=== PATIENT | male | born 1980 | race Caucasian/White ===

== ENCOUNTER 2016-09-29 19:42 | Emergency (ER) | payer OTHER ==
[~2016-09-29] VITALS: Ht 177.8 cm; Wt 79.4 kg
[~2016-09-29 19:42] MED LIST: ACYCLOVIR800 MG PO; ANAPROX DS550 MG PO; ANTIBIOTIC O500 U/GM TP; AUGMENTIN 875 M1 TAB PO; BACTRIM DS 8001 TA1 PO; KEFLEX500 MG PO; MOTRIN800 MG PO; NKHM; SUBOXONE 2 MG-01 TAB SL; ZANTAC 150150 MG PO
[2016-09-29] MEDS ORDERED: ANAPROX DS550 MG PO (21:04)
[2016-09-29] MEDS ORDERED: PREDNISONE20 M1 PO (21:16)
== END 2016-09-29 21:32 | disposition home or self-care (01) ==
LOC: ED 19:42
DX: G56.01 Carpal tunnel syndrome, right upper limb (principal); F17.200 Nicotine dependence, unspecified, uncomplicated

== ENCOUNTER 2017-05-04 20:11 | Emergency (ER) | payer BC ==
[~2017-05-04] VITALS: Ht 177.8 cm; Wt 81.6 kg
[~2017-05-04 20:11] MED LIST changes: +PREDNISONE20 M1 PO
[2017-05-04] MEDS ORDERED: CLINDAMYCIN150 MG PO (21:12)
== END 2017-05-04 21:20 | disposition home or self-care (01) ==
LOC: ED 20:11
DX: S60.453A Superficial foreign body of left middle finger, initial encounter (principal); F17.200 Nicotine dependence, unspecified, uncomplicated; Z79.899 Other long term (current) drug therapy; W22.8XXA Striking against or struck by other objects, initial encounter; Y93.89 Activity, other specified; Y92.89 Other specified places as the place of occurrence of the external cause; Y99.9 Unspecified external cause status

== ENCOUNTER 2019-11-27 14:08 | Emergency (ER) | payer SELFPAY ==
[~2019-11-27] VITALS: Ht 180.3 cm; Wt 81.6 kg
[~2019-11-27 14:08] MED LIST changes: +CLINDAMYCIN150 MG PO
== END 2019-11-27 16:52 | disposition home or self-care (01) ==
LOC: ED 14:08
DX: S63.253A Unspecified dislocation of left middle finger, initial encounter (principal); W18.39XA Other fall on same level, initial encounter; Y93.51 Activity, roller skating (inline) and skateboarding; Y92.89 Other specified places as the place of occurrence of the external cause; Y99.8 Other external cause status

== ENCOUNTER 2019-12-12 16:04 | Emergency (ER) | payer SELFPAY ==
[~2019-12-12] VITALS: Ht 170.1 cm; Wt 68.0 kg
[2019-12-12 16:20] LABS: BASO % 0.4 % (0.0-1.0); EOS # 0.1 10*3/uL (0.0-0.4); HEMATOCRIT 44.4 % (42.0-52.0); LYMPH # 2.5 10*3/uL (1.3-4.4); LYMPH % 25.2 % (27.0-41.0); MEAN CELL VOLUME 87.1 fl (80.0-94.0); MEAN CORPUSCULAR HGB 28.4 pg (27.0-31.0); MEAN CORPUSCULAR HGB CONC 32.7 g/dl (33.0-37.0); MEAN PLATELET VOLUME 9.2 fl (9.6-12.3); MONO # 0.8 10*3/uL (0.1-1.0); MONO % 7.6 % (3.0-9.0); NEUT # 6.6 10*3/uL (2.3-7.9); NEUT % 65.6 % (47.0-73.0); PLATELET COUNT AUTOMATED 315 10*3/uL (130-400); RED CELL DISTRI WIDTH 11.7 % (0-14.5)
[2019-12-12 16:37] LABS: ALBUMIN 3.8 gm/dl (3.1-4.5); ALKALINE PHOSPHATASE 130 U/L (45-117); BUN 9 mg/dl (7-24); CHLORIDE 105 mmol/L (98-107); POTASSIUM 3.8 mmol/L (3.5-5.1); SGOT/AST 13 IU/L (3-35); SGPT/ALT 26 U/L (12-78); SODIUM 140 mmol/L (136-145); TOTAL PROTEIN 7.9 gm/dL (6.4-8.2)
== END 2019-12-12 18:27 | disposition home or self-care (01) ==
LOC: ED 16:04
PROVIDERS: Emergency Medicine
DX: T40.1X1A Poisoning by heroin, accidental (unintentional), initial encounter (principal); Y92.89 Other specified places as the place of occurrence of the external cause

== ENCOUNTER 2021-04-11 17:31 | Emergency (ER) | payer MEDICAID ==
[~2021-04-11] VITALS: Ht 180.3 cm; Wt 79.4 kg
== END 2021-04-11 18:12 | disposition home or self-care (01) ==
LOC: ED 17:31
DX: T40.1X1A Poisoning by heroin, accidental (unintentional), initial encounter (principal); F17.200 Nicotine dependence, unspecified, uncomplicated; Y92.89 Other specified places as the place of occurrence of the external cause

== ENCOUNTER 2022-08-04 06:38 | Emergency (ER) | payer MEDICAID ==
[~2022-08-04] VITALS: Ht 180.3 cm; Wt 77.1 kg
== END 2022-08-04 07:35 | disposition home or self-care (01) ==
LOC: ED 06:38
DX: B34.9 Viral infection, unspecified (principal); Z20.822 Contact with and (suspected) exposure to COVID-19

== ENCOUNTER 2022-10-05 15:25 | Emergency (ER) | payer OTHER | END 2022-10-05 16:18 | disposition left against medical advice (07) | LOC: ED 15:25 | DX: M54.50 Low back pain, unspecified (principal); Z53.21 Procedure and treatment not carried out due to patient leaving prior to being seen by health care provider ==

== ENCOUNTER 2023-05-05 16:35 | Emergency (ER) | payer SELFPAY | END 2023-05-05 17:01 | disposition left against medical advice (07) | LOC: ED 16:35 | DX: T50.991A Poisoning by other drugs, medicaments and biological substances, accidental (unintentional), initial encounter (principal); F19.10 Other psychoactive substance abuse, uncomplicated; Z53.29 Procedure and treatment not carried out because of patient's decision for other reasons; Y92.009 Unspecified place in unspecified non-institutional (private) residence as the place of occurrence of the external cause ==

== ENCOUNTER 2023-07-07 13:45 | Emergency (ER) | payer SELFPAY ==
[~2023-07-07] VITALS: Ht 177.8 cm; Wt 77.1 kg
[2023-07-08] MEDS ORDERED: IBUPROFEN600 MG PO (15:05)
[2023-07-08] MEDS ORDERED: VIBRAMYCIN100 MG PO (15:05)
== END 2023-07-07 16:50 | disposition left against medical advice (07) ==
LOC: ED 13:45
DX: S69.91XA Unspecified injury of right wrist, hand and finger(s), initial encounter (principal); Z79.2 Long term (current) use of antibiotics; Z53.29 Procedure and treatment not carried out because of patient's decision for other reasons; W22.8XXA Striking against or struck by other objects, initial encounter; Y93.89 Activity, other specified; Y92.89 Other specified places as the place of occurrence of the external cause; Y99.8 Other external cause status

== ENCOUNTER 2023-07-08 11:33 | Emergency (ER) | payer SELFPAY ==
[~2023-07-08] VITALS: Ht 177.8 cm; Wt 77.1 kg
[2023-07-08] MEDS ORDERED: IBUPROFEN 800 MG TAB PO ONE (13:25)
[2023-07-08] MEDS ORDERED: Doxycycline Hyclate 100 MG CAP PO ONE (13:25)
[2023-07-08] MEDS ORDERED: IBUPROFEN600 MG PO (15:05)
[2023-07-08] MEDS ORDERED: VIBRAMYCIN100 MG PO (15:05)
== END 2023-07-08 15:10 | disposition home or self-care (01) ==
LOC: ED 11:33
DX: L08.9 Local infection of the skin and subcutaneous tissue, unspecified (principal); F17.200 Nicotine dependence, unspecified, uncomplicated; Z79.2 Long term (current) use of antibiotics

== ENCOUNTER 2023-07-24 20:54 | Emergency (ER) | payer SELFPAY ==
[~2023-07-24] VITALS: Wt 77.1 kg
[~2023-07-24 20:54] MED LIST changes: +IBUPROFEN600 MG PO; +VIBRAMYCIN100 MG PO
[2023-07-24] MEDS ORDERED: Ketorolac Tromethamine 60 MG/2 ML VIAL IM ONE (21:25)
[2023-07-24] MEDS ORDERED: NAPROXEN250 MG PO (21:30)
== END 2023-07-24 21:32 | disposition home or self-care (01) ==
LOC: ED 20:54
DX: S63.502A Unspecified sprain of left wrist, initial encounter (principal); W01.198A Fall on same level from slipping, tripping and stumbling with subsequent striking against other object, initial encounter; Y93.89 Activity, other specified; Y92.89 Other specified places as the place of occurrence of the external cause; Y99.8 Other external cause status

== ENCOUNTER 2023-09-15 13:14 | Emergency (ER) | payer SELFPAY ==
[~2023-09-15] VITALS: Ht 177.8 cm; Wt 74.8 kg
[~2023-09-15 13:14] MED LIST changes: +NAPROXEN250 MG PO
[2023-09-15 15:34] LABS: BILIRUBIN Negative (Negative); BLOOD Negative (Negative); CLARITY Clear (Clear); COLOR Yellow (Yellow); GLUCOSE Negative (Negative); KETONE Negative (Negative); LEUKO ESTERASE Negative (Negative); NITRITE Negative (Negative); UROBILINOGEN 0.2 E.U./dl (0.0-1.0)
[2023-09-15 15:41] LABS: URINE AMPHETAMINES Positive (1000ng/ml); URINE BARBITURATES Negative (200ng/ml); URINE BENZODIAZEPINES Negative (200ng/ml); URINE CANNABINOIDS (THC) Positive (50ng/ml); URINE COCAINE Negative (300ng/ml); URINE METHADONE Negative (300ng/ml); URINE OPIATES Negative (300ng/ml); URINE PHENCYCLIDINE Negative (25ng/ml)
[2023-09-15 15:41] LABS: BASO # 0.1 10*3/uL (0.0-0.1); BASO % 0.8 % (0.0-1.0); EOS # 0.1 10*3/uL (0.0-0.4); EOS % 2.1 % (1.0-4.0); HEMATOCRIT 39.3 % (42.0-52.0); LYMPH # 1.6 10*3/uL (1.3-4.4); LYMPH % 25.3 % (27.0-41.0); MEAN CELL VOLUME 89.7 fl (80.0-94.0); MEAN CORPUSCULAR HGB 28.8 pg (27.0-31.0); MEAN CORPUSCULAR HGB CONC 32.1 g/dl (33.0-37.0); MEAN PLATELET VOLUME 8.7 fl (9.6-12.3); MONO # 0.9 10*3/uL (0.1-1.0); MONO % 14.1 % (3.0-9.0); NEUT # 3.6 10*3/uL (2.3-7.9); NEUT % 57.4 % (47.0-73.0); PLATELET COUNT AUTOMATED 217 10*3/uL (130-400); RED BLOOD COUNT 4.38 10*6/uL (4.50-5.90); RED CELL DISTRI WIDTH 12.3 % (0-14.5); WHITE BLOOD COUNT 6.3 10*3/uL (4.8-10.8)
[2023-09-15 15:51] LABS: EPITHELIAL CELLS 0-2; WBC 0-2 wbc/hpf (0-5)
[2023-09-15 16:13] LABS: BUN 14 mg/dl (9-23); CHLORIDE 102 mmol/L (98-107); ETHYL ALCOHOL 4.4 mg/dl (<3); POTASSIUM 4.4 mmol/L (3.4-5.1)
== END 2023-09-15 16:35 | disposition home or self-care (01) ==
LOC: ED 13:14
PROVIDERS: Physician Assistant Medical
DX: F19.10 Other psychoactive substance abuse, uncomplicated (principal); Z79.899 Other long term (current) drug therapy

== ENCOUNTER 2023-10-01 00:46 | Emergency (ER) | payer MEDICAID ==
[~2023-10-01] VITALS: Ht 177.8 cm; Wt 54.4 kg
[2023-10-01] MEDS ORDERED: Ketorolac Tromethamine 60 MG/2 ML VIAL IM ONE (01:15)
== END 2023-10-01 01:21 | disposition home or self-care (01) ==
LOC: ED 00:46
DX: M25.512 Pain in left shoulder (principal)

== ENCOUNTER 2024-05-26 10:47 | Emergency (ER) | payer OTHER ==
[~2024-05-26] VITALS: Ht 177.8 cm; Wt 77.1 kg
[2024-05-26] MEDS ORDERED: PAROXETINE CR37.5 MG PO (10:55)
[2024-05-26] MEDS ORDERED: SUBOXONE 2 MG-1 EACH SL (10:55)
[2024-05-26] MEDS ORDERED: AMOX-CLAV 875-1 EACH PO (11:20)
[2024-05-26] MEDS ORDERED: Tdap Vaccine 0.5 ML SYR (Adult Vaccine) IM ONE (11:25)
[2024-05-26] MEDS ORDERED: Amoxicillin/Clavulanate Pota 875 MG TAB PO ONE (11:25)
== END 2024-05-26 13:22 | disposition home or self-care (01) ==
LOC: ED 10:47
DX: S70.372A Other superficial bite of left thigh, initial encounter (principal); Z79.899 Other long term (current) drug therapy; W54.0XXA Bitten by dog, initial encounter; Y93.89 Activity, other specified; Y92.89 Other specified places as the place of occurrence of the external cause; Y99.8 Other external cause status

== ENCOUNTER 2024-08-15 10:20 | Emergency (ER) | payer OTHER ==
[~2024-08-15] VITALS: Ht 177.8 cm
[~2024-08-15 10:20] MED LIST changes: +AMOX-CLAV 875-1 EACH PO; +PAROXETINE CR37.5 MG PO; +SUBOXONE 2 MG-1 EACH SL
== END 2024-08-15 11:12 | disposition home or self-care (01) ==
LOC: ED 10:20
DX: R68.89 Other general symptoms and signs (principal); F32.A Depression, unspecified; Z79.899 Other long term (current) drug therapy